=== PATIENT | female | born 1945 | race African-American/Black ===

== ENCOUNTER 2022-09-21 18:44 | Emergency (ER) | payer OTHER, MEDICARE | END 2022-09-21 20:56 | disposition home or self-care (01) | LOC: CSHERS 18:44 | DX: S09.90XA Unspecified injury of head, initial encounter (principal); E11.9 Type 2 diabetes mellitus without complications; F03.90 Unspecified dementia, unspecified severity, without behavioral disturbance, psychotic disturbance, mood disturbance, and anxiety; W01.0XXA Fall on same level from slipping, tripping and stumbling without subsequent striking against object, initial encounter | CPT/HCPCS: 70450 ==